=== PATIENT | male | born 1995 | race African-American/Black ===

== ENCOUNTER 2018-09-10 09:32 | Emergency (ER) | payer OTHER ==
[~2018-09-10] VITALS: Ht 170.2 cm; Wt 93.9 kg
[2018-09-10 11:18] LABS: ABSOLUTE NEUTROPHILS 8.4 thou/uL (1.4-8.2); BASOPHILS 0.4 % (0.0-2.0); EOSINOPHILS 0.2 % (0.0-3.0); HEMATOCRIT 39.7 % (42.0-52.0); HEMOGLOBIN 13.3 gm/dL (14.0-18.0); LYMPHOCYTES 9.9 % (24.0-44.0); MCH 27.7 pg (26.0-34.0); MCHC 33.4 g/dL (28.0-37.0); MCV 82.8 fL (80.0-100.0); MONOCYTES 5.1 % (1.0-8.0); PLATELET COUNT 333 thou/uL (150-400); POLYS 84.4 % (36.0-66.0); RBC 4.79 mil/uL (4.50-6.00); RDW 14.8 % (10.5-14.5)
[2018-09-10 11:24] LABS: ANION GAP 8 mmol/L (7-16); BUN 10 mg/dL (7-18); CALCIUM 8.4 mg/dL (8.5-10.1); CHLORIDE 104 mmol/L (98-107); CO2 27 mmol/L (21-32); GLUCOSE 115 mg/dL (74-106); POTASSIUM 4.2 mmol/L (3.5-5.1); SODIUM 139 mmol/L (136-145)
[2018-09-10] MEDS ORDERED: TRAMADOL 50 MG50 MG PO (11:24)
[2018-09-10] MEDS ORDERED: KEFLEX500 M1 PO (11:27)
[2018-09-10 11:30] LABS: ALBUMIN 3.6 g/dL (3.4-5.0); DIRECT BILIRUBIN < 0.1 mg/dL (<0.1-0.3); LIPASE 138 U/L (73-393); SGOT 48 U/L (15-37); SGPT 109 U/L (30-65); TOTAL BILIRUBIN 0.2 mg/dL (<0.1-1.0); TOTAL PROTEIN 7.4 g/dL (6.4-8.2)
[2018-09-10] MEDS ORDERED: ZOFRAN ODT4 MG PO (12:18)
[2018-09-10] MEDS ORDERED: BACTRIM DS TAB1 EACH PO (12:18)
[2018-09-10 12:44] VITALS: BP 124/70
== END 2018-09-10 12:45 | disposition home or self-care (01) ==
LOC: ER 09:32
PROVIDERS: Emergency Medicine
DX: L25.8 Unspecified contact dermatitis due to other agents (principal); T40.4X5A Adverse effect of other synthetic narcotics, initial encounter; T36.1X5A Adverse effect of cephalosporins and other beta-lactam antibiotics, initial encounter; R94.5 Abnormal results of liver function studies; Y92.9 Unspecified place or not applicable; Z88.5 Allergy status to narcotic agent; Z88.8 Allergy status to other drugs, medicaments and biological substances